=== PATIENT | female | born 1955 | race Caucasian/White ===

== ENCOUNTER 2025-01-06 15:47 | Emergency (ER) | payer MEDICARE, OTHER, SELFPAY ==
[2025-01-06 15:58] VITALS: BP 168/74
--- NOTE | 2025-01-06 17:46 | ED.GENMED ---
History of Present Illness
General
Chief Complaint: Back Pain
Source: patient
Exam Limitations: none
Time Seen by Provider: 01/06/25 17:46
Nursing documentation reviewed up to this point in time: agreed with
History of Present Illness
History of Present Illness:
69-year-old female with history of CAD, HTN, HLD, AL, GERD, IDDM, hide both thyroid, anxiety, CABG with cardiac stents 2022, presents for right lower back pain, pain radiating down buttock to thigh and just below the knee. Also has developed pain in
the right groin area. Went to [facility]
Was walking around [place] 3 weeks ago, developed the back pain, used heat patch and pain resolved. 2 days ago same pain started again with radiation down butt to thigh.
[facility]ent to [facility] yesterday, Given rx for Cyclobenzaprine and had a Toradol injection which she states helped.
Took Flexeril 10 mg last night and again at 6:30 a.m. today. Maycol 1 pm she called her son (who is at her bedside) saying her arms and legs were weak and heavy and she felt 'out of it.'
Went back to [facility] today and has copy of results of CBC, CMP, with no significant abnormality. Had LS spine xray that showed DJD, nothing acute.
She says she was told she needs an MRI and sent here for eval.
Past History
Past History
ED Past Medical History: CAD, HTN, Hypercholesterolemia, IDDM, AL (Non-STEMI September 2014), Hypothyroidism, Other (Lumbar disc disease) and Other (Statin intolerance); Negative Asthma
ED Past Surgical History: Cardiac (2 vessel CABG September 2014), and Orthopedic (Carpal tunnel release)
Social History
Tobacco: Non-smoker
Alcohol: Daily (One glass of wine daily)
Drug: None
Personal:
Living: with family
Employment: Other (Noncontributory)
Family History
Family History: Diabetes
Review of Systems
Review of Systems
Allergies reviewed?: Yes
All Other Systems: ROS reviewed and negative except as documented in HPI and ROS
Constitutional: Denies fever
Respiratory: Denies trouble breathing
Cardiac: Denies chest pain
ABD/GI: Denies abdominal pain
Musculoskeletal: Reports back pain; Denies edema
Skin: Reports no symptoms
Neurological: Reports no symptoms
Phy Exam
Physical Exam
Physical Exam:
GENERAL: No acute distress. A&Ox3.
CONSTITUTIONAL: Afebrile.
RESPIRATORY: Regular respirations, nonlabored, lungs clear.
CARDIOVASCULAR: Regular rate and rhythm, no murmurs, no rubs.
GI: Soft, nontender, normal BS
MUSCULOSKELETAL: Tender to palpate right groin. Tender to palpate mid upper right buttock. No spinal bony tenderness. Neg SLR. Pain elicited with right SLR to 45 degrees (with ease) Moves with ease. Well perfused.
SKIN: Warm, dry, pink
PSYCH: Mildly anxious, mood and affect. Well kept, interactive and appropriate
NEUROLOGIC: Awake, alert and oriented. No focal neurological deficits. Strength 5/5 all extremities. Patellar reflexes equal. Sensation to touch equal bilateral LE's.
Course
Orders/Labs/Results
Orders:
Orders
01/06/25 18:23
Ketorolac [Toradol] 30 mg IM NOW STA
Vital Signs
Initial and Last Documented VS:
Initial Vital Signs
Temp Pulse Resp BP Pulse Ox
97.8 F 77 17 168/74 99
01/06/25 15:58 01/06/25 15:58 01/06/25 15:58 01/06/25 15:58 01/06/25 15:58
Last Documented Vital Signs
Temp Pulse Resp BP Pulse Ox
97.8 F 77 17 168/74 99
01/06/25 15:58 01/06/25 15:58 01/06/25 15:58 01/06/25 15:58 01/06/25 15:58
MDM/Problems Addressed
Differential Diagnosis Includes:
musculoskeletal back pain, sciatica, disc herniation.
MDM/Problems Addressed:
69-year-old female with history of CAD, HTN, HLD, AL, GERD, IDDM, hide both thyroid, anxiety, CABG with cardiac stents 2022, presents for right lower back pain, pain radiating down buttock to thigh and just below the knee. Also has developed pain in
the right groin area. Went to [facility]
Was walking around [place] 3 weeks ago, developed the back pain, used heat patch and pain resolved. 2 days ago same pain started again with radiation down butt to thigh.
Went to [facility] yesterday, Given rx for Cyclobenzaprine and had a Toradol injection which she states helped.
Took Flexeril 10 mg last night and again at 6:30 a.m. today. At 1 pm she called her son (who is at her bedside) saying her arms and legs were weak and heavy and she felt 'out of it.'
Went back to [facility] today and has copy of results of CBC, CMP, with no significant abnormality. Had LS spine xray that showed DJD, nothing acute.
She says she was told she needs an MRI and sent here for eval.
6:30 p.m.
No cauda equina. No focal neurological deficits, strength equal, pt OOB and ambulating well.
Right groin pain most likely from walking differently due to the back pain.
She cannot take NSAID's per her clinic lpn and she has Prednisone, Percocet, Tramadol listed as allergies and 'I get very sick' and refused to take them.
I reassured her nothing dangerous or worrisome. Heating pad may help, ice or heat to groin.
I gave her a shot of Toradol since she said it helped.
Discussed her arms and legs feeling weak and heavy most likely side effect from Flexeril. Son totally agrees and says she is very sensitive to meds and no matter what med she takes she will complain about a side effect.
She was anxious about the Flexeril 10 mg Rx for Flexeril 5 mg sent to her pharmacy as she cannot cut the 10 mg pills in half.
Son at bedside agrees, he is very knowledgeable about back pain, understands and is involved in all parts of conversation as his suffers with chronic back pain.
At discharge pt ambulated down hallway to bathroom and back, DC'd via wheelchair
*Critical Care Note
Total Time (30-74mins, 75-104mins- exclusive of procedures): Not Applicable
ED Attending Note
-
Portions of this chart may have been created with voice recognition software.� Occasional wrong word or��sound alike� substitutions may have occurred due to the inherent limitations of voice recognition software.
Discharge Plan
Departure
Patient Disposition: Home (Routine Discharge)
Date of Disposition: 01/06/25
Time of Disposition: 18:24
Patient with high blood pressure during this ER visit?: No
Condition: Fair
Discharge Problem:
Acute low back pain with right-sided sciatica, Strain of right groin
Instructions: Low Back Pain (DC), Sciatica (DC)
Prescriptions:
New
cyclobenzaprine 5 mg tablet
5 mg PO TID PRN (Reason: back pain) Qty: 15 0RF
No Action
aspirin 81 MG tablet,delayed release (DR/EC)
81 mg PO DAILY
insulin aspart U-100 [Novolog FlexPen U-100 Insulin] 300 UNITS/3 ML insulin pen
3 - 4 unit SC AC
ergocalciferol (vitamin D2) 2,000 UNIT tablet
50,000 unit PO MONTHLY
alprazolam [Xanax] 0.25 mg Tablet
0.25 mg PO BIDPRN PRN (Reason: anxiety)
pantoprazole [Protonix] 40 mg Tablet,Delayed Release (Dr/Ec)
40 mg PO DAILY
biotin 10,000 mcg Capsule
10,000 mcg PO DAILY
cwxhotczpqmq-quwdaipw-kzbcoc Tablet
1 tab PO DAILY
insulin degludec [Tresiba FlexTouch U-100] 100 unit/mL (3 mL) Insulin Pen
4 unit SC BID
lisinopril 10 MG tablet
20 mg PO DAILY
atorvastatin 10 mg Tablet
10 mg PO SUMOWEFR Qty: 1 0RF
isosorbide mononitrate 30 mg Tablet Extended Release 24 Hr
30 mg PO DAILY Qty: 90 5RF
amlodipine 5 mg Tablet
5 mg PO DAILY Qty: 1 0RF
Brilinta 90 mg Tablet
90 mg PO BID Qty: 180 5RF
Referrals:
Melchor Lugo DO [Family Provider] - Follow up in 2-3 days
Activity Restrictions/Additional Instructions:
As we discussed, I sent a prescription to your pharmacy for Flexeril (cyclobenzaprine) 5 mg tablets.
See your doctor this week for follow up.
Interventions
Interventions:
*Risk Screen - Suicide Last Done: 01/06/25 16:04
*General Assessment Last Done: 01/06/25 16:04
*Neglect/Abuse Screening Last Done: 01/06/25 16:04
*ED COVID-19 Vaccine History Last Done: 01/06/25 16:04
*Nursing Disposition Last Done: 01/06/25 18:55
ED-Musculoskeletal Assessment Last Done: 01/06/25 18:54
Discharge Date and Time
Discharge Date/Time: 01/06/25 18:55
Print Language: DUTCH
[2025-01-06] MEDS: TORADOL 30 MG IM (18:30)
== END 2025-01-06 18:55 | disposition home or self-care (01) ==
LOC: EMR 15:47
PROVIDERS: EMERGENCY PHYSICIAN Student in an Organized Health Care Education/Training Program; FAMILY PHYSICIAN Student in an Organized Health Care Education/Training Program
DX: M54.41 Lumbago with sciatica, right side (principal); S39.011A Strain of muscle, fascia and tendon of abdomen, initial encounter; R53.1 Weakness; X58.XXXA Exposure to other specified factors, initial encounter; I25.10 Atherosclerotic heart disease of native coronary artery without angina pectoris; I10 Essential (primary) hypertension; K21.9 Gastro-esophageal reflux disease without esophagitis; E11.9 Type 2 diabetes mellitus without complications; E03.9 Hypothyroidism, unspecified; F41.9 Anxiety disorder, unspecified; M19.90 Unspecified osteoarthritis, unspecified site; I25.2 Old myocardial infarction; Z79.4 Long term (current) use of insulin; Z95.1 Presence of aortocoronary bypass graft; Z95.5 Presence of coronary angioplasty implant and graft; Z88.6 Allergy status to analgesic agent; Z88.1 Allergy status to other antibiotic agents; Z88.5 Allergy status to narcotic agent; Z88.8 Allergy status to other drugs, medicaments and biological substances
CPT/HCPCS: 99284; 96372